=== PATIENT | female | born 1995 | race Caucasian/White ===

== ENCOUNTER 2018-06-04 11:43 | Emergency (ER) | payer OTHER ==
[~2018-06-04] VITALS: Ht 172.7 cm; Wt 59.0 kg
[2018-06-04] MEDS ORDERED: CLEOCIN HCL150 MG PO ×2 (12:08→13:15)
[2018-06-04] MEDS ORDERED: TYLENOL EXTRA500 MG PO (12:09)
[2018-06-04] MEDS ORDERED: PERCOCET 10-321 EACH PO (12:09)
[2018-06-04 13:31] VITALS: BP 132/84
== END 2018-06-04 13:32 | disposition home or self-care (01) ==
LOC: ER 11:43
DX: L02.411 Cutaneous abscess of right axilla (principal); F17.210 Nicotine dependence, cigarettes, uncomplicated; Z88.1 Allergy status to other antibiotic agents